=== PATIENT | female | born 2000 | race Caucasian/White ===

== ENCOUNTER 2021-05-02 20:32 | Inpatient (IN) ==
[2021-05-02] MEDS ORDERED: ONDANSETRON 4 MG/2 ML VIAL IV PRN (21:37)
[2021-05-02] MEDS ORDERED: BUTORPHANOL 2 MG/ML VIAL IV PRN (21:37)
[2021-05-02] MEDS ORDERED: MEPERIDINE 50 MG/1 ML VIAL IV PRN (21:37)
[2021-05-02 22:07] LABS: Basophils # 0.1 10*3/uL (0.0-0.2); Basophils % 0.5 % (0.0-0.8); Eosinophils # 0.1 10*3/uL (0.0-0.87); Eosinophils % 0.5 % (0.00-10.9); Hematocrit 33.7 VOL% (35.7-47.0); Hemoglobin 11.3 GM/DL (12.0-16.0); Immature Granulocytes % 0.5 %; Immature Granulocytes Absolute 0.06 #; Lymphocytes % 25.8 % (21.3-54.2); Mean Corpuscular HGB Conc 33.5 GM/DL (32-36); Mean Corpuscular Volume 85.3 FL (87-102); Mean Platelet Volume 11.3 FL (9.6-12.0); Monocytes % 5.1 % (1.7-12.7); Neutrophils % 67.6 % (38.7-73.9); Platelet Count 205 T/CUMM (130-400); Red Blood Count 3.95 MC/CUMM (3.8-5.5); Red Cell Distribution Width 14.2 % (9.3-17.3); White Blood Count 11.6 T/CUMM (4-12)
[2021-05-02 22:32] LABS: Albumin 2.8 G/DL (3.4-5.0); Bilirubin,Total 0.4 MG/DL (0.20-1.00); Osmolality,Calculated 274.5 MOS/KG (273-304); Potassium 3.6 MMOL/L (3.5-5.1); Total Protein 6.6 G/DL (6.4-8.2)
[2021-05-03] MEDS: LACTATED RINGERS 1,000 ML IV SCH ×4 (04:38→19:27)
[2021-05-03] MEDS ORDERED: CITRIC ACID/SODIUM CITRATE 30 ML UDCUP PO ONE (07:35)
[2021-05-03] MEDS ORDERED: FAMOTIDINE 20 MG/2 ML VIAL IV ONE (07:35)
[2021-05-03] MEDS ORDERED: NALOXONE 0.4 MG/ML VIAL IV PRN (07:37)
[2021-05-03] MEDS ORDERED: diphenhydrAMINE 50 MG/1 ML VIAL IV PRN (07:37)
[2021-05-03] MEDS ORDERED: ePHEDrine 50 MG/ML VIAL IV PRN (07:37)
[2021-05-03] MEDS ORDERED: fentaNYL 2 MCG/ROPIV 0.2% EPID 100 ML EPIDURAL SCH (08:00)
[2021-05-03] MEDS ORDERED: LACTATED RINGERS 1,000 ML IV SCH (08:00)
[2021-05-03] MEDS ORDERED: OXYTOCIN/LR 20 UNIT/1,000 ML BAG IV SCH (08:30)
[2021-05-03 09:26] LABS: Bilirubin,Urine Negative (Negative); Blood, Urine Negative (Negative); Glucose,Urine (UA) Negative (Negative); Ketones,Urine 20 mg/dL (Negative); Mucus,Urine Occasional /LPF (Occasional); Nitrite,Urine Negative (Negative); Protein,Urine 100 MG/DL; RBC,Urine 1 /HPF (0-4); Urine Appearance CLEAR (Clear); Urine Color Yellow (Yellow); Urine Specific Gravity 1.009 (1.001-1.035); Urine Urobilinogen < 2.0 EU/DL (0.2-1.0)
[2021-05-03] MEDS ORDERED: miSOPROStoL 200 MCG TABLET ONE (10:22)
[2021-05-03] MEDS ORDERED: METHYLERGONOVINE 0.2 MG/1 ML AMP ONE (10:22)
[2021-05-03] MEDS ORDERED: CARBOPROST TROMETHAMINE 250 MCG/ML AMP IM ONE (10:22)
[2021-05-03] MEDS ORDERED: TRANEXAMIC ACID 1,000 MG/10 ML VIAL ONE (10:22)
[2021-05-03] MEDS ORDERED: LIDOCAINE 2% 20 ML VIAL ONE (11:18)
[2021-05-03 12:12] LABS: Cord Arterial Blood HCO3 17.8 MMOL/L
[2021-05-03 12:17] LABS: Cord Venous Blood HCO3 19.7 MMOL/L; Cord Venous Blood PCO2 44.7 MMHG; Cord Venous Blood PO2 31.3
[2021-05-03] MEDS ORDERED: ACETAMINOPHEN 325 MG TABLET PO PRN (13:25)
[2021-05-03] MEDS ORDERED: WITCH HAZEL PADS 100/JAR TOP PRN (13:25)
[2021-05-03] MEDS ORDERED: OXYTOCIN/LR 20 UNIT/1,000 ML BAG IV ONE (13:25)
[2021-05-03] MEDS ORDERED: HYDROCORTISONE 2.5% RECTAL CREAM 30 GM TUBE TOP PRN (13:25)
[2021-05-03] MEDS ORDERED: MEASLES/MUMPS/RUBELLA VACCINE 0.5 ML VIAL SUBCUT ONE (13:25)
[2021-05-03] MEDS ORDERED: oxyCODONE/ACETAMINOPHEN 5-325 MG TABLET PO PRN (13:25)
[2021-05-03] MEDS ORDERED: DIPH/TET/ACEL PERT BOOSTER VACCINE 0.5 ML VIAL IM ONE (13:25)
[2021-05-03] MEDS ORDERED: RHO(D) IMMUNE GLOBULIN 300 MCG SYRINGE IM ONE (13:25)
[2021-05-03] MEDS ORDERED: BISACODYL 10 MG SUPP RECTAL PRN (13:25)
[2021-05-03] MEDS ORDERED: LANOLIN 50% CREAM 0.3 OZ TUBE TOP PRN (13:25)
[2021-05-03] MEDS ORDERED: ONDANSETRON 4 MG/2 ML VIAL IV PRN (13:25)
[2021-05-03] MEDS ORDERED: BENZOCAINE 20%/MENTHOL 0.5% SPRAY 56 GM CAN TOP PRN (13:25)
[2021-05-03] MEDS: IBUPROFEN 800 MG TABLET PO PRN ×2 (16:14→23:30)
[2021-05-03] MEDS: LABETALOL 100 MG TABLET PO SCH ×2 (18:45→21:07)
[2021-05-03] MEDS: DOCUSATE SODIUM 100 MG CAPSULE PO SCH (21:31)
[2021-05-04 02:13] LABS: Basophils # 0.1 10*3/uL (0.0-0.2); Basophils % 0.3 % (0.0-0.8); Eosinophils % 0.2 % (0.00-10.9); Hematocrit 34.3 VOL% (35.7-47.0); Hemoglobin 11.4 GM/DL (12.0-16.0); Immature Granulocytes % 0.5 %; Immature Granulocytes Absolute 0.09 #; Lymphocytes # 3.1 10*3/uL (1.4-4.0); Lymphocytes % 17.8 % (21.3-54.2); Mean Corpuscular HGB Conc 33.2 GM/DL (32-36); Mean Corpuscular Volume 85.8 FL (87-102); Mean Platelet Volume 11.3 FL (9.6-12.0); Monocytes % 4.8 % (1.7-12.7); Neutrophils % 76.4 % (38.7-73.9); Platelet Count 191 T/CUMM (130-400); Red Cell Distribution Width 14.2 % (9.3-17.3); White Blood Count 17.5 T/CUMM (4-12)
[2021-05-04] MEDS: LABETALOL 100 MG TABLET PO SCH ×2 (08:08→20:00)
[2021-05-04] MEDS: DOCUSATE SODIUM 100 MG CAPSULE PO SCH ×2 (08:08→20:00)
[2021-05-04] MEDS: MULTIVITAMIN (PRENATAL) TABLET PO SCH (08:08)
[2021-05-04] MEDS: oxyCODONE/ACETAMINOPHEN 5-325 MG TABLET PO PRN ×2 (08:10→15:03)
[2021-05-04] MEDS: IBUPROFEN 800 MG TABLET PO PRN (22:09)
[2021-05-05] MEDS: MULTIVITAMIN (PRENATAL) TABLET PO SCH (08:10)
[2021-05-05] MEDS: LABETALOL 100 MG TABLET PO SCH (08:11)
[2021-05-05] MEDS: oxyCODONE/ACETAMINOPHEN 5-325 MG TABLET PO PRN (08:15)
[2021-05-05] MEDS: DOCUSATE SODIUM 100 MG CAPSULE PO SCH (08:45)
[2021-05-05 11:45] VITALS: BP 156/89
== END 2021-05-05 12:46 | disposition home or self-care (01) | DRG 807 ==
LOC: N.LDOUT 20:32 → N.LD 20:34 → N.OB 05-03 20:45
PROVIDERS: ADMIT Specialist; ATTEND Specialist